=== PATIENT | male | born 2005 | race African-American/Black ===

== ENCOUNTER 2024-03-31 10:36 | Emergency (ER) | payer OTHER ==
[~2024-03-31] VITALS: Ht 182.9 cm; Wt 81.8 kg
[2024-03-31 11:02] VITALS: BP 104/68; PULSE 58; RESP 18; TEMP 99.3; O2SAT 99
[2024-03-31 11:27] LABS: COVID AG,FIA SOURCE NASAL SWAB
[2024-03-31 12:10] LABS: RAPID GROUP A STREP NEGATIVE (NEGATIVE)
[2024-03-31 12:16] LABS: SARS-COV2 (COVID) ANTIGEN,FIA Negative (Negative)
[2024-03-31 12:17] LABS: INFLUENZA TYPE A NEGATIVE FOR TYPE A (NEGATIVE); INFLUENZA TYPE B NEGATIVE FOR TYPE B (NEGATIVE)
== END 2024-03-31 13:27 | disposition left against medical advice (07) ==
LOC: EMS 10:48
DX: R05.9 Cough, unspecified (principal); R09.81 Nasal congestion; R07.0 Pain in throat; Z20.822 Contact with and (suspected) exposure to COVID-19; Z53.21 Procedure and treatment not carried out due to patient leaving prior to being seen by health care provider
CPT/HCPCS: 87430; 87804